=== PATIENT | female | born 1975 | race Two or more races ===

== ENCOUNTER 2017-10-27 09:24 | Emergency (ER) | payer MEDICAID, OTHER ==
[~2017-10-27] VITALS: Ht 175.3 cm; Wt 93.6 kg
[2017-10-27] MEDS ORDERED: SODIUM CHLORIDE 0.9% 1,000 ML IV ONE (09:38)
[2017-10-27] MEDS ORDERED: TOPI200T25 PO (09:39)
[2017-10-27] MEDS ORDERED: DULO20CA45 PO (09:39)
[2017-10-27] MEDS ORDERED: TRAZ100T15 PO (09:39)
[2017-10-27] MEDS ORDERED: SODIUM CHLORIDE 0.9% 1,000ML IVBOLUS ONE (10:00)
[2017-10-27] MEDS ORDERED: DIPHENHYDRAMINE 50 MG/ML, 1ML IVPush ONE (10:00)
[2017-10-27] MEDS ORDERED: PROCHLORPERAZINE 5 MG/ML, 2ML IVPush ONE (10:00)
[2017-10-27] MEDS ORDERED: SODIUM CHLORIDE FLUSH 10ML SYR IVF ONE (10:00)
[2017-10-27 10:05] LABS: HEMOGLOBIN 13.5 g/dL (11.7-16.4); WHITE BLOOD COUNT 9.6 x10^3/uL (3.4-10)
[2017-10-27 10:15] LABS: BLOOD UREA NITROGEN 16 mg/dL (7-18)
[2017-10-27 10:19] LABS: ASPARTATE AMINO TRANSFERASE 31 U/L (15-37)
[2017-10-27] MEDS ORDERED: GADOBUTROL 10 MMOL/10 ML PFS ONE (11:22)
[2017-10-27 14:59] VITALS: BP 122/69
== END 2017-10-27 15:07 | disposition home or self-care (01) ==
LOC: ED 11:03
DX: G43.011 Migraine without aura, intractable, with status migrainosus (principal); R55 Syncope and collapse; E11.9 Type 2 diabetes mellitus without complications
CPT/HCPCS: 36415; 70553; 80053; 80201; 84703; 85025; 96361; 96374; 96375; 99285; A9585; J0780; J1200; J7030

== ENCOUNTER 2019-02-12 10:39 | Emergency (ER) | payer MEDICAID, OTHER ==
[~2019-02-12] VITALS: Ht 157.5 cm; Wt 89.0 kg
[~2019-02-12 10:39] MED LIST: DULO20CA45 PO; TOPI200T25 PO; TRAZ-137 PO
--- NOTE | 2019-02-12 11:10 | NUR ---
Pt presents for pain to R ribs since Monday. Pt states she was wrestling with boyfriend. Unsure if there was impact to that location or not. Painful resperations. Denies other complaints.
[2019-02-12] MEDS ORDERED: OXYcodone/APAP 5/325MG TABLET PO ONE (11:30)
[2019-02-12] MEDS ORDERED: KETOROLAC 30 MG/1 ML IM ONE (11:30)
[2019-02-12] MEDS ORDERED: KETOROLAC 30 MG/1 ML ONE (11:44)
[2019-02-12] MEDS ORDERED: OXYcodone/APAP 5/325MG TABLET ONE (11:44)
[2019-02-12 11:56] VITALS: BP 122/79
== END 2019-02-12 11:58 | disposition home or self-care (01) ==
LOC: ED 11:53
DX: S20.211A Contusion of right front wall of thorax, initial encounter (principal); G43.909 Migraine, unspecified, not intractable, without status migrainosus; E11.40 Type 2 diabetes mellitus with diabetic neuropathy, unspecified; Z87.891 Personal history of nicotine dependence; X58.XXXA Exposure to other specified factors, initial encounter; Y93.9 Activity, unspecified; Y92.89 Other specified places as the place of occurrence of the external cause; Y99.8 Other external cause status
CPT/HCPCS: 71101; 96372; 99283; J1885

== ENCOUNTER 2019-05-18 10:41 | Emergency (ER) | payer MEDICAID ==
[~2019-05-18] VITALS: Ht 157.5 cm; Wt 93.0 kg
--- NOTE | 2019-05-18 10:59 | NUR ---
pt to room, changed into gown, upright on gurney awake & comfortable, responds approp to staff, NAD, comfort measures provided, call light within reach.
[2019-05-18 11:18] LABS: MICROSCOPIC AUTO
[2019-05-18 11:19] LABS: CULTURE INDICATED? YES
--- NOTE | 2019-05-18 11:25 | NUR ---
pt to XR
[2019-05-18 11:32] LABS: BASOPHILS # (AUTO) 0.06 x10^3/uL (0-0.1); BASOPHILS % (AUTO) 1 % (0-1); EOSINOPHILS # (AUTO) 0.12 x10^3/uL (0-0.4); EOSINOPHILS % (AUTO) 1 % (1-7); LYMPHOCYTES # (AUTO) 2.71 x10^3/uL (1-3.4); LYMPHOCYTES % (AUTO) 30 % (22-44); MD NO; MEAN CORPUSCULAR HEMOGLOBIN 25.8 pg (27.0-34.8); MEAN CORPUSCULAR HGB CONC 32.5 g/dL (32.4-35.8); MEAN CORPUSCULAR VOLUME 79.4 fL (80-100); MEAN PLATELET VOLUME 8.7 fL (7.4-10.4); MONOCYTES % (AUTO) 4 % (2-9); NEUTROPHILS # (AUTO) 5.85 x10^3/uL (1.8-6.8); NEUTROPHILS % (AUTO) 64 % (42-75); PLATELET COUNT 312 x10^3/uL (130-400); RED BLOOD COUNT 5.41 x10^6/uL (3.82-5.3); RED CELL DISTRIBUTION WIDTH 15.3 % (9.6-15.2)
--- NOTE | 2019-05-18 11:33 | NUR ---
pt returned from XR
[2019-05-18 11:50] LABS: ALANINE AMINOTRANSFERASE 33 U/L (12-78); ALBUMIN 3.7 g/dL (3.4-5.0); ANION GAP 7 mmol/L (5-15); CALCIUM 8.9 mg/dL (8.5-10.1); CHLORIDE 107 mmol/L (98-107)
[2019-05-18 11:56] LABS: ALKALINE PHOSPHATASE 46 U/L (45-117); BILIRUBIN,TOTAL 0.3 mg/dL (0.2-1.0); CREATININE 0.77 mg/dL (0.55-1.02); TOTAL PROTEIN 7.9 g/dL (6.4-8.2)
[2019-05-18 12:05] VITALS: BP 126/78
--- NOTE | 2019-05-18 12:05 | NUR ---
pt remains upright on gurney awake & calm, responds approp to staff, NAD, comfort measures provided, call light within reach.
[2019-05-18] MEDS ORDERED: PLEASE ENTER ALLERGIES MC SCH (12:30)
[2019-05-18] MEDS ORDERED: DIAZEPAM 5 MG/ML, 10ML VIAL IV ONE (12:30)
--- NOTE | 2019-05-18 12:47 | NUR ---
Patient given discharge instructions and Rx, they have confirmed that they understand the instructions. Patient ambulatory with steady gait.
== END 2019-05-18 12:48 | disposition home or self-care (01) ==
LOC: ED 11:08
DX: N30.00 Acute cystitis without hematuria (principal); K59.00 Constipation, unspecified; M77.11 Lateral epicondylitis, right elbow
CPT/HCPCS: 36415; 74021; 80053; 81001; 83690; 84703; 85025; 87086; 99284; J3360

== ENCOUNTER 2020-03-23 16:13 | Inpatient (IN) | payer MEDICAID, OTHER ==
[~2020-03-23] VITALS: Ht 157.5 cm; Wt 92.6 kg
[~2020-03-23 16:13] MED LIST changes: -TRAZ-137 PO; +TRAZ-175 PO
--- NOTE | 2020-03-23 16:51 | NUR ---
EKG AND VITALS OBTAINED BY THIS TECH
[2020-03-23] MEDS ORDERED: SODIUM CHLORIDE 0.9% 1,000 ML IV ONE (17:12)
[2020-03-23] MEDS ORDERED: SODIUM CHLORIDE FLUSH 10ML SYR IVF ONE (17:30)
[2020-03-23] MEDS ORDERED: SODIUM CHLORIDE 0.9% 1,000ML IVBOLUS ONE (17:30)
[2020-03-23] MEDS ORDERED: ONDANSETRON 2MG/ML, 2ML IVPush ONE (17:30)
[2020-03-23 17:52] LABS: BASOPHILS # (AUTO) 0.03 x10^3/uL (0-0.1); BASOPHILS % (AUTO) 0 % (0-1); EOSINOPHILS # (AUTO) 0.02 x10^3/uL (0-0.4); EOSINOPHILS % (AUTO) 0 % (1-7); LYMPHOCYTES # (AUTO) 1.83 x10^3/uL (1-3.4); LYMPHOCYTES % (AUTO) 21 % (22-44); MD NO; MEAN CORPUSCULAR HEMOGLOBIN 26.4 pg (27.0-34.8); MEAN CORPUSCULAR HGB CONC 33.1 g/dL (32.4-35.8); MEAN CORPUSCULAR VOLUME 79.7 fL (80-100); MEAN PLATELET VOLUME 9.4 fL (7.4-10.4); MONOCYTES % (AUTO) 4 % (2-9); NEUTROPHILS # (AUTO) 6.41 x10^3/uL (1.8-6.8); NEUTROPHILS % (AUTO) 75 % (42-75); PLATELET COUNT 297 x10^3/uL (130-400); RED BLOOD COUNT 5.13 x10^6/uL (3.82-5.3); RED CELL DISTRIBUTION WIDTH 14.5 % (9.6-15.2)
[2020-03-23 18:02] LABS: ALANINE AMINOTRANSFERASE 32 U/L (12-78); ALBUMIN 3.7 g/dL (3.4-5.0); ANION GAP 8 mmol/L (5-15); CHLORIDE 113 mmol/L (98-107); CREATININE 1.17 mg/dL (0.55-1.02)
[2020-03-23] MEDS ORDERED: ONDANSETRON 2MG/ML, 2ML ONE (18:03)
[2020-03-23] MEDS ORDERED: HYDROmorphone 2 MG/ML, 1ML ONE ×2 (18:03→19:42)
[2020-03-23 18:07] LABS: ALKALINE PHOSPHATASE 41 U/L (45-117); BILIRUBIN,TOTAL 0.2 mg/dL (0.2-1.0); TOTAL PROTEIN 8.1 g/dL (6.4-8.2)
[2020-03-23] MEDS: HYDROmorphone 2 MG/ML, 1ML IVPush PRN ×2 (18:07→19:45)
--- NOTE | 2020-03-23 18:19 | NUR ---
IV STARTED AND MEDICATIONS ADMINISTERED. PT UP TO BR, UA COLLECTED AND SENT TO LAB. PT STABLE, WILL CONTINUE TO MONITOR.
[2020-03-23 18:39] LABS: MICROSCOPIC NOT IND
[2020-03-23 18:45] LABS: CULTURE INDICATED? NO
[2020-03-23] MEDS ORDERED: OMNIPAQUE 350 MG/ML, 100ML BOTTLE ONE (19:09)
[2020-03-23] MEDS ORDERED: PROMETHAZINE 25 MG/ML, 1ML IM ONE (20:00)
--- NOTE | 2020-03-23 20:02 | NUR ---
REPORT RECEIVED FROM LIA BURRIS. [facility]
[2020-03-23] MEDS ORDERED: PROMETHAZINE 25 MG/ML, 1ML ONE (20:05)
--- NOTE | 2020-03-23 20:08 | NUR ---
PT RETURNED FROM CT. UP TO BR AND SECOND DOSE OF PAIN MEDICATION ADMINISTERED. PT C/O NAUSEA, NOTE SENT FOR ADDITIONAL NAUSEA MEDICATIONS. REPORT TO KELLEN FITZGERALD
--- NOTE | 2020-03-23 20:13 | NUR ---
PT RESTING IN [facility]. VOMITTING. MEDICATED PER MAR
[2020-03-23] MEDS ORDERED: METOCLOPRAMIDE 5 MG/ML, 2ML IVPush ONE (20:30)
[2020-03-23] MEDS ORDERED: METOCLOPRAMIDE 5 MG/ML, 2ML ONE (20:43)
[2020-03-23] MEDS ORDERED: SODIUM CHLORIDE FLUSH 10ML SYR IVF PRN (21:00)
--- NOTE | 2020-03-23 21:12 | NUR ---
PT RESTING IN [facility]. REPORTS MINIMAL IMPROVEMENT IN NAUSEA.
[2020-03-23] MEDS ORDERED: SODIUM CHLORIDE 0.9% 1,000 ML IV SCH (21:18)
[2020-03-23] MEDS: TRAZODONE 100MG TABLET PO SCH (21:30)
[2020-03-23] MEDS ORDERED: BISACODYL 10 MG SUPP PR PRN (21:30)
[2020-03-23] MEDS ORDERED: ONDANSETRON 2MG/ML, 2ML IVPush PRN (21:30)
[2020-03-23 21:54] VITALS: BP 141/85
[2020-03-23] MEDS: SODIUM CHLORIDE 0.45% 1,000 ML IV SCH (22:23)
[2020-03-23] MEDS: HEPARIN 5,000 UNITS/ML, 1ML SQ SCH (22:23)
[2020-03-23] MEDS: ONDANSETRON 2MG/ML, 2ML IVPush PRN (23:01)
[2020-03-24 01:33] VITALS: BP 110/73
[2020-03-24 04:41] LABS: BASOPHILS # (AUTO) 0.04 x10^3/uL (0-0.1); BASOPHILS % (AUTO) 1 % (0-1); EOSINOPHILS # (AUTO) 0.09 x10^3/uL (0-0.4); EOSINOPHILS % (AUTO) 1 % (1-7); LYMPHOCYTES # (AUTO) 1.64 x10^3/uL (1-3.4); LYMPHOCYTES % (AUTO) 22 % (22-44); MD NO; MEAN CORPUSCULAR HEMOGLOBIN 26.4 pg (27.0-34.8); MEAN CORPUSCULAR HGB CONC 32.7 g/dL (32.4-35.8); MEAN CORPUSCULAR VOLUME 80.8 fL (80-100); MEAN PLATELET VOLUME 9.8 fL (7.4-10.4); MONOCYTES # (AUTO) 0.36 x10^3/uL (0.2-0.8); MONOCYTES % (AUTO) 5 % (2-9); NEUTROPHILS % (AUTO) 71 % (42-75); PLATELET COUNT 225 x10^3/uL (130-400); RED BLOOD COUNT 4.28 x10^6/uL (3.82-5.3); RED CELL DISTRIBUTION WIDTH 14.7 % (9.6-15.2)
[2020-03-24 04:48] LABS: ANION GAP 5 mmol/L (5-15); CALCIUM 7.9 mg/dL (8.5-10.1); CHLORIDE 116 mmol/L (98-107)
[2020-03-24 04:49] LABS: CREATININE 0.92 mg/dL (0.55-1.02)
[2020-03-24] MEDS: HEPARIN 5,000 UNITS/ML, 1ML SQ SCH ×2 (06:41→14:43)
[2020-03-24 06:54] VITALS: BP 108/71
[2020-03-24] MEDS: ONDANSETRON 2MG/ML, 2ML IVPush PRN ×2 (08:11→14:43)
[2020-03-24] MEDS: FERROUS SULFATE 325 MG TABLET PO SCH ×2 (08:11→16:43)
[2020-03-24] MEDS: TOPIRAMATE 100 MG TABLET PO SCH (08:11)
[2020-03-24] MEDS: SODIUM CHLORIDE 0.45% 1,000 ML IV SCH ×2 (08:12→16:43)
[2020-03-24] MEDS ORDERED: DULOXETINE 20 MG CAPSULE.DR PO SCH (09:00)
[2020-03-24 14:14] VITALS: BP 135/76
[2020-03-24] MEDS: ACETAMINOPHEN 325 MG TABLET PO PRN (14:57)
[2020-03-24] MEDS: METOCLOPRAMIDE 5 MG/ML, 2ML IVPush PRN (17:31)
[2020-03-24 19:01] VITALS: BP 135/81
[2020-03-24] MEDS ORDERED: MAALOX/HYOSCYAMINE/LIDOCAINE 45 ML BTL PO ONE (22:00)
[2020-03-24] MEDS: TRAZODONE 100MG TABLET PO SCH (22:26)
[2020-03-25] MEDS: HEPARIN 5,000 UNITS/ML, 1ML SQ SCH ×3 (00:03→16:44)
[2020-03-25 00:09] VITALS: BP 146/82
[2020-03-25] MEDS: SODIUM CHLORIDE 0.45% 1,000 ML IV SCH (02:07)
[2020-03-25 07:10] VITALS: BP 131/78
[2020-03-25] MEDS ORDERED: CALCIUM GLUCONATE 4.6 MEQ in SODIUM CHLORIDE 0.9% 100 ML IV ONE (08:00)
[2020-03-25] MEDS: FERROUS SULFATE 325 MG TABLET PO SCH ×2 (08:22→16:44)
[2020-03-25] MEDS: TOPIRAMATE 100 MG TABLET PO SCH (08:22)
[2020-03-25] MEDS ORDERED: MAALOX/HYOSCYAMINE/LIDOCAINE 45 ML BTL PO ONE (09:00)
[2020-03-25] MEDS ORDERED: PROMETHAZINE 25 MG/ML, 1ML IM PRN (11:00)
[2020-03-25] MEDS ORDERED: MORPHINE SULFATE 4 MG/ML, 1ML IVPush ONE (11:00)
[2020-03-25] MEDS: D5%-0.45NACL+KCL 20MEQ 1,000 ML IV SCH (12:32)
[2020-03-25 14:48] VITALS: BP 129/78
[2020-03-25] MEDS: ONDANSETRON 2MG/ML, 2ML IVPush PRN (16:44)
[2020-03-25] MEDS: METOCLOPRAMIDE 5 MG/ML, 2ML IVPush PRN (17:46)
[2020-03-25 20:37] VITALS: BP 123/72
[2020-03-25] MEDS: TRAZODONE 100MG TABLET PO SCH (21:38)
[2020-03-25] MEDS: ACETAMINOPHEN 325 MG TABLET PO PRN (21:43)
[2020-03-26 00:17] VITALS: BP 117/75
[2020-03-26] MEDS: D5%-0.45NACL+KCL 20MEQ 1,000 ML IV SCH ×2 (00:26→11:44)
[2020-03-26] MEDS: HEPARIN 5,000 UNITS/ML, 1ML SQ SCH ×2 (00:26→08:48)
[2020-03-26 05:44] LABS: ALBUMIN 3.2 g/dL (3.4-5.0); ANION GAP 9 mmol/L (5-15); CALCIUM 8.4 mg/dL (8.5-10.1); CHLORIDE 113 mmol/L (98-107); CREATININE 0.95 mg/dL (0.55-1.02)
[2020-03-26 05:46] LABS: BASOPHILS # (AUTO) 0.03 x10^3/uL (0-0.1); BASOPHILS % (AUTO) 1 % (0-1); EOSINOPHILS # (AUTO) 0.06 x10^3/uL (0-0.4); EOSINOPHILS % (AUTO) 1 % (1-7); LYMPHOCYTES # (AUTO) 2.58 x10^3/uL (1-3.4); LYMPHOCYTES % (AUTO) 39 % (22-44); MD NO; MEAN CORPUSCULAR HEMOGLOBIN 26.3 pg (27.0-34.8); MEAN CORPUSCULAR HGB CONC 32.7 g/dL (32.4-35.8); MEAN CORPUSCULAR VOLUME 80.3 fL (80-100); MEAN PLATELET VOLUME 9.8 fL (7.4-10.4); MONOCYTES # (AUTO) 0.35 x10^3/uL (0.2-0.8); MONOCYTES % (AUTO) 5 % (2-9); NEUTROPHILS # (AUTO) 3.55 x10^3/uL (1.8-6.8); NEUTROPHILS % (AUTO) 54 % (42-75); PLATELET COUNT 196 x10^3/uL (130-400); RED BLOOD COUNT 4.42 x10^6/uL (3.82-5.3); RED CELL DISTRIBUTION WIDTH 14.3 % (9.6-15.2)
[2020-03-26 06:59] VITALS: BP 143/86
[2020-03-26] MEDS: ONDANSETRON 2MG/ML, 2ML IVPush PRN (08:48)
[2020-03-26] MEDS: ACETAMINOPHEN 325 MG TABLET PO PRN (08:48)
[2020-03-26] MEDS: FERROUS SULFATE 325 MG TABLET PO SCH (08:48)
[2020-03-26] MEDS: TOPIRAMATE 100 MG TABLET PO SCH (08:48)
[2020-03-26 12:04] VITALS: BP 121/65
== END 2020-03-26 13:07 | disposition left against medical advice (07) | DRG 392 ==
LOC: ED 17:31 → EDIP 21:00 → 3N 21:49
PROVIDERS: ADMIT Internal Medicine; ATTEND Family Medicine
DX: A08.4 Viral intestinal infection, unspecified (principal); E87.2 Acidosis; E66.9 Obesity, unspecified; F12.90 Cannabis use, unspecified, uncomplicated; M06.9 Rheumatoid arthritis, unspecified; M19.90 Unspecified osteoarthritis, unspecified site; M32.9 Systemic lupus erythematosus, unspecified; Z88.0 Allergy status to penicillin; Z68.37 Body mass index [BMI] 37.0-37.9, adult; Z83.3 Family history of diabetes mellitus; Z90.49 Acquired absence of other specified parts of digestive tract
CPT/HCPCS: 36415; 74177; 80048; 80053; 80069; 81003; 82728; 83036; 83540; 83550; 83690; 83735; 84703; 85025; 93005; 96361; 96372; 96374; 96375; 96376; G0378; J0610; J1170; J1644; J2405; J2550; Q9967; J2270; J2765; J3480; J7030

== ENCOUNTER → 2020-07-17 | Outpatient (CLI) | payer MEDICAID ==
[~2020-07-17] MED LIST changes: +TOPIRAMATE PO
== END | disposition home or self-care (01) ==
LOC: STAR 15:56
PROVIDERS: ATTEND Anesthesiology
DX: Z01.812 Encounter for preprocedural laboratory examination (principal); Z20.828 Contact with and (suspected) exposure to other viral communicable diseases
CPT/HCPCS: 36415; 87635

== ENCOUNTER 2020-07-21 05:49 | Day surgery (SDC) | payer MEDICAID ==
[~2020-07-21] VITALS: Ht 152.4 cm; Wt 84.0 kg
[~2020-07-21 05:49] MED LIST changes: -TOPIRAMATE PO
[2020-07-21] MEDS ORDERED: LACTATED RINGERS 1,000 ML IV SCH (06:37)
[2020-07-21] MEDS ORDERED: BUPIVACAINE/PF-EPI 0.25% 1:200K ONE (06:46)
[2020-07-21] MEDS ORDERED: NEOSPORIN OINT, 15GM ONE (06:46)
[2020-07-21] MEDS ORDERED: TOPIRAMATE PO (06:54)
[2020-07-21 06:55] VITALS: BP 123/80
[2020-07-21 06:56] LABS: HCG UR SG 1.011 (1.003-1.030)
[2020-07-21] MEDS ORDERED: CEFAZOLIN 1,000 MG ONE (06:57)
[2020-07-21] MEDS ORDERED: GLYCOPYRROLATE 0.2MG/1ML, 5ML ONE (06:57)
[2020-07-21] MEDS ORDERED: FENTANYL PF 100 MCG/2ML ONE ×4 (06:57→09:42)
[2020-07-21] MEDS ORDERED: NEOSTIGMINE 1 MG/ML, 10ML ONE (06:57)
[2020-07-21] MEDS ORDERED: ROCURONIUM 10MG/ML,5ML ONE (06:57)
[2020-07-21] MEDS ORDERED: SUCCINYLCHOLINE 20 MG/ML, 10ML ONE (06:57)
[2020-07-21] MEDS ORDERED: ONDANSETRON 2MG/ML, 2ML ONE (06:57)
[2020-07-21] MEDS ORDERED: PROPOFOL 10 MG/ML, 20ML ONE (06:57)
[2020-07-21] MEDS ORDERED: MIDAZOLAM 1 MG/ML, 2ML ONE (06:57)
[2020-07-21] MEDS ORDERED: DEXAMETHASONE 4 MG/ML, 1ML ONE (06:57)
[2020-07-21] MEDS ORDERED: CHLORHEXIDINE 15 ML UDC MM ONE (07:00)
[2020-07-21] MEDS ORDERED: SCOPOLAMINE 1MG PATCH TD ONE ×2 (07:17→07:30)
[2020-07-21] MEDS ORDERED: OXYcodone 5 MG/5 ML ORAL.SOL UDC PO PRN (07:30)
[2020-07-21] MEDS ORDERED: HYDROmorphone 1 MG/ML, 1ML INJ IVPush PRN (07:30)
[2020-07-21] MEDS ORDERED: PROMETHAZINE 25 MG/ML, 1ML IVPush PRN (07:30)
[2020-07-21] MEDS ORDERED: KETOROLAC 30 MG/1 ML IVPush PRN (07:30)
[2020-07-21] MEDS ORDERED: HYDROcodone/APAP 7.5-325MG/15ML UDC PO PRN (07:30)
[2020-07-21 07:45] LABS: MEAN CORPUSCULAR HEMOGLOBIN 26.7 pg (27.0-34.8); MEAN CORPUSCULAR HGB CONC 32.7 g/dL (32.4-35.8); MEAN CORPUSCULAR VOLUME 81.6 fL (80-100); MEAN PLATELET VOLUME 9.5 fL (7.4-10.4); PLATELET COUNT 248 x10^3/uL (130-400); RED BLOOD COUNT 4.52 x10^6/uL (3.82-5.3); RED CELL DISTRIBUTION WIDTH 14.2 % (9.6-15.2)
[2020-07-21 07:50] LABS: ANION GAP 5 mmol/L (5-15); CALCIUM 8.7 mg/dL (8.5-10.1); CHLORIDE 116 mmol/L (98-107); CREATININE 0.92 mg/dL (0.55-1.02)
[2020-07-21 07:51] LABS: BASOPHILS # (AUTO) 0.04 x10^3/uL (0-0.1); BASOPHILS % (AUTO) 1 % (0-1); EOSINOPHILS # (AUTO) 0.14 x10^3/uL (0-0.4); EOSINOPHILS % (AUTO) 2 % (1-7); LYMPHOCYTES # (AUTO) 2.06 x10^3/uL (1-3.4); LYMPHOCYTES % (AUTO) 28 % (22-44); MONOCYTES # (AUTO) 0.33 x10^3/uL (0.2-0.8); MONOCYTES % (AUTO) 4 % (2-9); NEUTROPHILS % (AUTO) 66 % (42-75)
[2020-07-21] MEDS ORDERED: SUGAMMADEX 200 MG/2 ML IVPush ONE (07:51)
[2020-07-21] MEDS ORDERED: KETOROLAC 30 MG/1 ML ONE (07:51)
[2020-07-21] MEDS ORDERED: LIDOCAINE 2%, 20ML ONE (07:51)
[2020-07-21 07:59] LABS: MD NO
[2020-07-21] MEDS ORDERED: PROMETHAZINE 25 MG/ML, 1ML ONE (09:10)
[2020-07-21] MEDS: FENTANYL PF 100 MCG/2ML IV PRN ×2 (09:17→09:43)
[2020-07-21] MEDS ORDERED: OXYcodone 5 MG/5 ML ORAL.SOL UDC ONE (09:49)
== END 2020-07-21 11:35 | disposition home or self-care (01) ==
LOC: OUT 05:49
PROVIDERS: ATTEND Obstetrics & Gynecology Maternal & Fetal Medicine
DX: Z30.2 Encounter for sterilization (principal); N92.0 Excessive and frequent menstruation with regular cycle; F32.9 Major depressive disorder, single episode, unspecified; M32.9 Systemic lupus erythematosus, unspecified; M79.7 Fibromyalgia; G43.909 Migraine, unspecified, not intractable, without status migrainosus; J45.909 Unspecified asthma, uncomplicated; F17.290 Nicotine dependence, other tobacco product, uncomplicated; Z79.899 Other long term (current) drug therapy; Z88.0 Allergy status to penicillin; Z90.49 Acquired absence of other specified parts of digestive tract; Z98.890 Other specified postprocedural states
CPT/HCPCS: 36415; 58563; 58670; 80048; 81025; 85025; 88302; J0330; J0690; J1100; J1885; J2250; J2405; J2550; J2704; J2710; J3010; J7120